=== PATIENT | female | born 1980 ===

== ENCOUNTER 2022-08-12 21:21 | Emergency (ER) | payer OTHER ==
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
[2022-08-12 23:11] VITALS: BP 122/76; PULSE 78; RESP 16; TEMP 97.1
== END 2022-08-12 23:01 | disposition home or self-care (01) ==
LOC: EC 21:21
DX: S70.01XA Contusion of right hip, initial encounter (principal); V49.50XA Passenger injured in collision with unspecified motor vehicles in traffic accident, initial encounter; Y92.410 Unspecified street and highway as the place of occurrence of the external cause
CPT/HCPCS: 73502; 99284